=== PATIENT | female | born 1970 | race Caucasian/White ===

== ENCOUNTER 2023-02-28 12:10 | Observation (INO) | payer OTHER ==
[2023-02-28] MEDS ORDERED: ASPIRIN 81 MG CHEWABLE TABLETS PO ONE (13:31)
[2023-02-28] MEDS ORDERED: ASPIRIN 81 MG CHEWABLE TABLETS ONE (13:40)
[2023-02-28 13:59] LABS: INR 1.14 (0.83-1.09); PROTHROMBIN TIME (PATIENT) 13.2 SEC (9.7-13.0)
[2023-02-28 14:01] LABS: ACTIVATED PTT 32.8 SECONDS (25.2-36.5)
[2023-02-28 14:15] LABS: CHLORIDE 105 mmol/L (98-107); POTASSIUM 4.5 mmol/L (3.5-5.1); SODIUM 138 mmol/L (136-145)
[2023-02-28 14:18] LABS: ANION GAP 8 MMOL/L (8-16); BLOOD UREA NITROGEN 21.3 mg/dL (7-18); CALCIUM 9.1 mg/dL (8.5-10.1); CO2 25 mmol/L (21-32); GLUCOSE,RANDOM 97 mg/dL (74-106); MAGNESIUM 2.3 mg/dL (1.8-2.4)
[2023-02-28 14:21] LABS: SGOT/AST 12 U/L (15-37); SGPT/ALT 20 U/L (13-61)
[2023-02-28 14:23] LABS: BILIRUBIN,TOTAL 0.5 mg/dL (0.2-1); TOT PROT 7.7 g/dl (6.4-8.2)
[2023-02-28 14:24] LABS: ALK PHOS 156 U/L (45-117)
[2023-02-28 14:25] LABS: BASO % 0.4 % (0-2.0); EOS % 1.1 % (0-4.5); HEMATOCRIT 40.8 % (32.4-45.2); HEMOGLOBIN 13.9 GM/dL (10.7-15.3); LYMPH % 16.6 % (8-40); MCH 27.4 pg (25.7-33.7); MCHC 34.1 g/dl (32.0-36.0); MEAN CELL VOLUME 80.3 fl (80-96); MONO % 6.9 % (3.8-10.2); PLATELET COUNT 208 10^3/uL (134-434); RBC 5.08 M/mm3 (3.60-5.2); RDW 13.8 % (11.6-15.6); WHITE BLOOD COUNT 7.4 K/mm3 (4.0-10.0)
[2023-02-28] MEDS ORDERED: ALBUTEROL SO4 HFA INHALER IH PRN (16:11)
[2023-02-28 20:23] VITALS: BMI 36.2
[2023-02-28] MEDS: ESCITALOPRAM OXALATE 10 MG TABLET PO SCH (21:30)
[2023-02-28 23:06] LABS: CHOLESTEROL 234 mg/dL (50-200)
[2023-02-28 23:07] LABS: LDL CHOLESTEROL (ONLY SJRH) 164 mg/dL (5-100)
[2023-02-28 23:08] LABS: HDL CHOLESTEROL 49 mg/dL (40-60)
[2023-03-01 05:56] VITALS: RESP 20
[2023-03-01 08:21] LABS: BASO % 0.4 % (0-2.0); EOS % 2.6 % (0-4.5); HEMATOCRIT 37.2 % (32.4-45.2); HEMOGLOBIN 12.8 GM/dL (10.7-15.3); LYMPH % 23.7 % (8-40); MCH 27.8 pg (25.7-33.7); MCHC 34.4 g/dl (32.0-36.0); MEAN CELL VOLUME 80.8 fl (80-96); MEAN PLT VOLUME 9.7 fl (7.5-11.1); MONO % 9.6 % (3.8-10.2); NEUT % 63.7 % (42.8-82.8); PLATELET COUNT 181 10^3/uL (134-434)
[2023-03-01 08:38] LABS: POTASSIUM 4.1 mmol/L (3.5-5.1)
[2023-03-01 08:41] LABS: CALCIUM 8.7 mg/dL (8.5-10.1)
[2023-03-01 08:42] LABS: BLOOD UREA NITROGEN 19.9 mg/dL (7-18)
[2023-03-01 08:45] LABS: CREATININE 0.9 mg/dL (0.55-1.3)
[2023-03-01] MEDS ORDERED: ASPIRIN COATED 81 MG TABLET.EC PO SCH (10:00)
[2023-03-01] MEDS: ESCITALOPRAM OXALATE 10 MG TABLET PO SCH (11:11)
[2023-03-01 12:15] VITALS: BP 138/82; PULSE 93; TEMP 98.4
== END 2023-03-01 14:29 | disposition home or self-care (01) ==
LOC: JER 12:10 → INTOOBSV 15:05 → UNDOADMOB 15:05 → JERBED 15:05 → J7W 19:19
PROVIDERS: ADMIT Internal Medicine; ATTEND Nurse Practitioner Family
PROC: 3E0F7GC Introduction of Other Therapeutic Substance into Respiratory Tract, Via Natural or Artificial Opening (ICD-10-PCS; principal; 2023-02-28)
DX: R07.89 Other chest pain (principal); R94.31 Abnormal electrocardiogram [ECG] [EKG]; J45.909 Unspecified asthma, uncomplicated; E11.9 Type 2 diabetes mellitus without complications; E78.5 Hyperlipidemia, unspecified; F41.9 Anxiety disorder, unspecified; N64.4 Mastodynia; E66.01 Morbid (severe) obesity due to excess calories; Z68.36 Body mass index [BMI] 36.0-36.9, adult
CPT/HCPCS: 36415; 71046-TC-FY; 80048; 80053; 80061; 82550; 83036; 83735; 84484; 85025; 85610; 85730; 93005; 93010; 93306-TC; 93351; 94640; 99285-25; G0378